=== PATIENT | male | born 1995 | race Caucasian/White ===

== ENCOUNTER 2021-10-08 21:04 | Emergency (ER) | payer SELFPAY ==
[~2021-10-08] VITALS: Ht 170.2 cm; Wt 58.2 kg
[~2021-10-08 21:04] MED LIST: NORCO 325 MG-51 TAB PO
[2021-10-08 21:47] VITALS: TEMP 98.3
[2021-10-09 00:15] VITALS: BP 154/78; PULSE 76
== END 2021-10-09 00:15 | disposition home or self-care (01) ==
LOC: COL.ER 21:04
DX: M79.672 Pain in left foot (principal)

== ENCOUNTER 2022-05-01 09:34 | Day surgery (SDC) | payer OTHER ==
[~2022-05-01] VITALS: Ht 170.2 cm; Wt 53.3 kg
[2022-05-01 10:29] VITALS: BP 111/83; PULSE 65; TEMP 96.9
[2022-05-01 11:30] VITALS: BP 111/83; PULSE 61; TEMP 97
[2022-05-01 11:45] VITALS: BP 114/82; PULSE 71
--- NOTE | 2022-05-01 11:53 | NUR ---
1130 - PT arrives and was settled by an RN. Monitors applied and VSS. PT provided with a warm muffin and ice water per request. PT oriented to room and call alvarenga, within reach. PT denies nausea and pain.
[2022-05-01 12:00] VITALS: BP 122/78; PULSE 68
--- NOTE | 2022-05-01 12:04 | NUR ---
1145 - VSS. Call lyle rankin within reach. PT expressed desire to be discharged.
--- NOTE | 2022-05-01 12:26 | NUR ---
1200 - vss. IV discontinued. Catheter tip intact. Pressure bandage applied. NO redness or swelling noted. DC instructions and educational material reviewed with the PT who verbalized understanding and signed the related paperwork. Questions answered to PT satisfaction. 1225 - PT dismissed from endo via wheelchair to the PT entrence by a Tech. PT has DC packet and personal belongings and was transferred into the care of his GF Annalee, who is driving private car.
== END 2022-05-01 12:29 | disposition home or self-care (01) ==
LOC: SDCO 09:34
DX: D50.9 Iron deficiency anemia, unspecified (principal); B96.81 Helicobacter pylori [H. pylori] as the cause of diseases classified elsewhere
CPT/HCPCS: J2704; J7120